=== PATIENT | male | born 1965 | race American Indian/Alaskan Native ===

== ENCOUNTER 2019-02-07 10:50 | Emergency (ER) | payer SELFPAY ==
[2019-02-07] MEDS ORDERED: ZOFRAN IV ONE (11:42)
[2019-02-07] MEDS ORDERED: CLEOCIN 900 MG/50 mL 900 MG/50 ML BAG IV ONE (11:42)
[2019-02-07] MEDS ORDERED: DECADRON IV ONE (11:42)
[2019-02-07] MEDS ORDERED: MORPHINE IV ONE (11:42)
--- NOTE | 2019-02-07 11:45 | Emergency Department Report ---
ED ENT HPI - General Chief complaint: Dental/Oral Stated complaint: L SIDE JAW SWOLLEN Time Seen by Provider: 02/07/19 11:39 Source: patient Mode of arrival: Ambulatory Limitations: No Limitations - History of Present Illness Initial comments: Patient is 53 years old male presented to the ER complaining of left jaw and neck swelling for the last 5 days. Patient stated that his symptoms started with a possible tooth abscess and then a swelling get worse, patient denied any difficulty in breathing or swallowing but is having difficulty to open his mouth wide. MD complaint: tooth pain, difficulty swallowing - Related Data Allergies Allergy/AdvReac Type Severity Reaction Status Date / Time No Known Allergies Allergy Unverified 02/07/19 10:53 ED Dental HPI - General Chief complaint: Dental/Oral Stated complaint: L SIDE JAW SWOLLEN Time Seen by Provider: 02/07/19 11:39 Source: patient Mode of arrival: Ambulatory Limitations: No Limitations - Related Data Allergies Allergy/AdvReac Type Severity Reaction Status Date / Time No Known Allergies Allergy Unverified 02/07/19 10:53 ED Review of Systems ROS: Stated complaint: L SIDE JAW SWOLLEN Other details as noted in HPI Comment: All other systems reviewed and negative Constitutional: denies: chills, fever ENT: throat pain Cardiovascular: denies: chest pain, palpitations, dyspnea on exertion Gastrointestinal: denies: abdominal pain, nausea, vomiting Musculoskeletal: denies: back pain ED Past Medical Hx - Past Medical History Previous Medical History?: No - Surgical History Past Surgical History?: Yes Additional Surgical History: hernia surgery - Social History Smoking Status: Current Every Day Smoker Substance Use Type: Alcohol ED Physical Exam - General Limitations: No Limitations General appearance: alert, in no apparent distress - Head Head exam: Present: atraumatic, normocephalic, normal inspection - ENT ENT exam: Present: other (left mandibular area swelling all the way down to the upper neck. Patient is able to open his mouth but not wide enough.) - Neck Neck exam: Present: tenderness, full ROM. Absent: meningismus, lymphadenopathy, thyromegaly - Respiratory Respiratory exam: Present: normal lung sounds bilaterally - Cardiovascular Cardiovascular Exam: Present: regular rate, normal rhythm, normal heart sounds - GI/Abdominal GI/Abdominal exam: Present: soft, normal bowel sounds. Absent: distended, tenderness, guarding, rebound, rigid, organomegaly, mass, bruit, pulsatile mass, hernia - Extremities Exam Extremities exam: Present: normal inspection, full ROM, normal capillary refill - Back Exam Back exam: Present: normal inspection, full ROM. Absent: CVA tenderness (R), CVA tenderness (L), muscle spasm, paraspinal tenderness, vertebral tenderness - Neurological Exam Neurological exam: Present: alert, oriented X3, CN II-XII intact - Psychiatric Psychiatric exam: Present: normal affect - Skin Skin exam: Present: warm, intact, normal color ED Course Vital Signs 02/07/19 02/07/19 10:58 14:56 Temperature 98 F Pulse Rate 90 Respiratory 17 14 Rate Blood Pressure 141/88 O2 Sat by Pulse 100 99 Oximetry ED Medical Decision Making - Lab Data Result diagrams: 02/07/19 11:58 02/07/19 11:58 - Radiology Data Radiology results: report reviewed Referring Physician: CARMELINA BONILLA Patient Name: EDUARD DOUGLAS Date of : 1965 Sex: Male Report Date: 2019-02-07 Report Status: [id number] Cat Scan Report Signed Patient: EDUARD DOUGLAS MR#: [id number] : 1965 Acct:[id number] Age/Sex: 53 / M ADM Date: 02/07/19 Loc: ED Attending Dr: Ordering Physician: CARMELINA BONILLA Date of Service: 02/07/19 Procedure(s): CT neck w con Accession Number(s): [id number] cc: CARMELINA BONILLA PROCEDURE: CT NECK W CON TECHNIQUE: Computerized axial tomography of the soft tissue neck was performed following the IV injection of iodinated nonionic contrast. Coronal and sagittal reconstructed im aging provided. CT DOSE LENGTH PRODUCT: 697.7 mGy-cm. HISTORY: Swelling to left side of face/neck. COMPARISONS: None currently available. FINDINGS: Left lower 1st molar demonstrates lucency at the root. Soft tissue swelling swelling along the inner margin of the mandible extending to the floor the mouth measures 4.7 x 1.4 cm. Heterogeneous rim enhancement noted. Complex fluid collection extends around the mandible into the left subcutaneous soft tissues and left masseter muscle where there is a large abscess measuring 6 x 7 cm. Enlarged right and left level 1A and 1B lymph nodes identified. Stranding of the subcutaneous fat with edema noted. Skin thickening identified. There is a abscess component in the left submandibular soft tissues on series 5:119 measuring 2.0 x 1.4 cm. There is mass effect and possible collateral involvement of the left submandibular gland. Right submandibular glands unremarkable. Enlarged bilateral upper cervical lymph nodes which is more notable on the left. Nasopharynx: No enlarged tonsils. No nasal cavity lesions identified. No mass. Oropharynx: [place] and lingual tonsils are within normal limits. Floor of the mouth is unremarkable. Pharynx: Epiglottis is unremarkable. Aryepiglottic fold is unremarkable. Larynx: True and false cords are symmetrical. No significant airway compromise. Vascular structures are unremarkable. No aneurysm. No dissection. No filling defects. No mass lesions identified. Parotid glands demonstrate normal appearance. The thyroid gland is unremarkable. Partially imaged paranasal sinuses are unremarkable. Partially imaged temporal bones are unremarkable. Cervical spondylosis. Partial images of the lungs are unremarkable. IMPRESSION: * Lucency at the root of the left lower 1st molar is suspicious for root abscess which may be dehiscing into the left submandibular soft tissues extending into the floor of mouth and laterally into the subcutaneous cutaneous soft tissues and left masseter muscle around the jaw. There is a small abscess component extending the submandibular areas. There is concern for Henry's angina. No airway compromise at this time. * Reactive bilateral upper cervical and submandibular lymph nodes identified. * 02/07/2019 at 1134 PT: I, Saman Hein MD, discussed the findings over the phone with Dr. Bonilla. This document is electronically signed by Saman Hein MD., February 07 2019 02:38:25 PM ET Transcribed By: TYM Dictated By: SAMAN HEIN MD Electronically Authenticated By: SAMAN HEIN MD Signed Date/Time: 02/07/19 1440 DD/ 133 TD/TT: 02/07/19 133 - Medical Decision Making Patient is 53 years old male presented to the ER complaining of left jaw and neck swelling for the last 5 days. Patient stated that his symptoms started with a possible tooth abscess and then a swelling get worse, patient denied any difficulty in breathing or swallowing but is having difficulty to open his mouth wide. I discussed the patient is Dr. Ness, ENT from [place], Dr. Ness stated that patient can be transferred to [facility] and he accepted the patient. I discussed the patient with an [place] transfer center. Critical Care Time: Yes Critical care time in (mins) excluding proc time.: 30 Critical care attestation.: If time is entered above; I have spent that time in minutes in the direct care of this critically ill patient, excluding procedure time. ED Disposition Clinical Impression: Ludwigs angina Disposition: DC/TX-70 ANOTHER TYPE HLTHCARE Is pt being admited?: No Condition: Stable
[2019-02-07 12:25] LABS: Basophils % (Auto) 0.3 % (0.0-1.8); Eosinophils % (Auto) 0.2 % (0.0-4.3); Hematocrit 43.5 % (35.5-45.6); Hemoglobin 14.8 gm/dl (11.8-15.2); Lymphocytes # (Auto) 1.4 K/mm3 (1.2-5.4); Lymphocytes % (Auto) 8.1 % (13.4-35.0); Mean Corpuscular HGB Conc 34 % (32-34); Mean Corpuscular Volume 94 fl (84-94); Monocytes # (Auto) 2.3 K/mm3 (0.0-0.8); Monocytes % (Auto) 13.4 % (0.0-7.3); Platelet Count 275 K/mm3 (140-440); Red Blood Count 4.63 M/mm3 (3.65-5.03); Red Cell Distribution Width 14.6 % (13.2-15.2)
[2019-02-07 12:43] LABS: BUN/Creatinine Ratio 11; Blood Urea Nitrogen 10 mg/dL (9-20); Hemolysis Index 6
--- NOTE | 2019-02-07 14:40 | Cat Scan Report ---
PROCEDURE: CT NECK W CON TECHNIQUE: Computerized axial tomography of the soft tissue neck was performed following the IV inje ction of iodinated nonionic contrast. Coronal and sagittal reconstructed imaging provided. CT DOSE LENGTH PRODUCT: 697.7 mGy-cm. HISTORY: Swelling to left side of face/neck. COMPARISONS: None currently available. FINDINGS: Left lower 1st molar demonstrates lucency at the root. Soft tissue swelling swelling along the inner margin of the mandible extending to the floor the mouth measures 4.7 x 1.4 cm. Heterogeneous rim enha ncement noted. Complex fluid collection extends around the mandible into the left subcutaneous soft t issues and left masseter muscle where there is a large abscess measuring 6 x 7 cm. Enlarged right and left level 1A and 1B lymph nodes identified. Stranding of the subcutaneous fat with edema noted. [place] n thickening identified. There is a abscess component in the left submandibular soft tissues on serie s 5:119 measuring 2.0 x 1.4 cm. There is mass effect and possible collateral involvement of the left submandibular gland. Right subma ndibular glands unremarkable. Enlarged bilateral upper cervical lymph nodes which is more notable on the left. Nasopharynx: No enlarged tonsils. No nasal cavity lesions identified. No mass. Oropharynx: [place] and lingual tonsils are within normal limits. Floor of the mouth is unremarkable . Pharynx: Epiglottis is unremarkable. Aryepiglottic fold is unremarkable. Larynx: True and false cords are symmetrical. No significant airway compromise. Vascular structures are unremarkable. No aneurysm. No dissection. No filling defects. No mass lesions identified. Parotid glands demonstrate normal appearance. The thyroid gland is unremarkable. Partially imaged paranasal sinuses are unremarkable. Partially imaged temporal bones are unremarkable. Cervical spondylosis. Partial images of the lungs are unremarkable. IMPRESSION: * Lucency at the root of the left lower 1st molar is suspicious for root abscess which may be dehisc ing into the left submandibular soft tissues extending into the floor of mouth and laterally into the subcutaneous cutaneous soft tissues and left masseter muscle around the jaw. There is a small absces s component extending the submandibular areas. There is concern for Henry's angina. No airway compro mise at this time. * Reactive bilateral upper cervical and submandibular lymph nodes identified. * 02/07/2019 at 1134 PT: I, Saman Hudson MD, discussed the findings over the phone with Dr. Espinosa. This document is electronically signed by Saman Hudson MD., February 07 2019 02:38:25 PM ET
[2019-02-07 18:25] VITALS: BP 120/78
== END 2019-02-07 18:23 | disposition other institution (70) ==
LOC: ED 10:50
DX: K12.2 Cellulitis and abscess of mouth (principal); F17.200 Nicotine dependence, unspecified, uncomplicated
CPT/HCPCS: 36415; 70491; 80048; 85025; 96365; 96375; 99291; J1100; J2270; J2405; Q9967